=== PATIENT | female | born 1955 ===

== ENCOUNTER 2020-11-11 17:18 | Emergency (ER) | payer SELFPAY ==
[2020-11-11] MEDS ORDERED: predniSONE 20 MG TAB ONE (18:16)
[2020-11-11] MEDS ORDERED: Azithromycin 250 MG TAB ONE (18:21)
[2020-11-11 22:40] LABS: SARS-CoV-2 PCR by NAA DETECTED (NotDetected)
== END 2020-11-11 19:49 | disposition home or self-care (01) ==
LOC: ERS 17:18
DX: U07.1 COVID-19 (principal); J12.82 Pneumonia due to coronavirus disease 2019
CPT/HCPCS: 71045; 93005; J7512; J7620; U0003; U0005

== ENCOUNTER 2020-11-14 18:12 | Inpatient (IN) | payer SELFPAY ==
[~2020-11-14 18:12] MED LIST: Iopamidol-370 76% 500 ML 1 ML ONE
[2020-11-14 18:51] LABS: Hemoglobin 15.5 g/dL (12.0-16.0); Mean Corpuscular HGB CONC 31.9 g/dL (32.0-36.0); Mean Corpuscular Hemoglobin 28.5 pg (27.0-31.0); Mean Corpuscular Volume 89.4 fL (78.0-98.0); Mean Platelet Volume 9.6 fL (7.4-10.4); Platelet Count 285 thou/uL (130-400); RBC Distribution Width 12.5 % (11.5-14.5); Red Blood Cell (RBC) Count 5.45 mill/uL (4.20-5.40); White Blood Cell (WBC) Count 15.2 thou/uL (4.8-10.8)
[2020-11-14 19:07] LABS: Band 14 % (5-11); Lymphocytes 4 % (21-51); MDiff Complete? YES; Monocytes 3 % (0-10); Neutrophil 79 % (42-75); Platelet Morphology Comment Appears Adequate; RBC Morphology Normal
[2020-11-14] MEDS ORDERED: Dexamethasone 10 MG/ML VIAL ONE (19:10)
[2020-11-14] MEDS ORDERED: Enoxaparin Sodium 80 MG/0.8 ML SYRINGE ONE (19:10)
[2020-11-14] MEDS ORDERED: Aspirin Chewable 81 MG TAB ONE ×2 (19:10→19:29)
[2020-11-14] MEDS ORDERED: Azithromycin 500 MG VIAL ONE ×2 (19:10→19:29)
[2020-11-14 19:12] LABS: ALT (SGPT) 22 U/L (8-55); AST (SGOT) 31 U/L (5-34); Albumin 3.1 g/dL (3.4-4.8); Alkaline Phosphatase 98 U/L (40-110); Anion Gap 22 mmol/L (10-20); BUN (Urea Nitrogen) 52 mg/dL (9.8-20.1); Bilirubin, Total 0.7 mg/dL (0.2-1.2); CK (CPK) 41 U/L (29-168); Calc. Creatinine Clearance 0 mL/min (70-130); Calcium 8.8 mg/dL (7.8-10.44); Carbon Dioxide 17 mmol/L (23-31); Chloride 96 mmol/L (98-107); Globulin 4.3 g/dL (2.4-3.5); Lipase 17 U/L (8-78); Potassium 4.7 mmol/L (3.5-5.1); Protein, Total 7.4 g/dL (5.8-8.1); Sodium 130 mmol/L (136-145)
[2020-11-14 19:21] LABS: Glucose 591 mg/dL (80-115)
[2020-11-14] MEDS ORDERED: cefTRIAXone\\ROCEPHIN 2 GM VIAL ONE (19:29)
[2020-11-14] MEDS ORDERED: Dexamethasone 4 mg/ml Vial ONE (19:29)
[2020-11-14] MEDS ORDERED: INSULIN REGULAR IN 0.9 % NACL 100 UNIT/100 ML BAG ONE (19:29)
[2020-11-14] MEDS ORDERED: Enoxaparin Sodium 60 MG/0.6 ML SYRINGE ONE (20:11)
[2020-11-14 21:35] LABS: Actual Bicarbonate (HCO3a) 18.9 mEq/L (22-28); Analyzer IN Cardio ER; Base Excess (BEa) -4.3 mEq/L (-2.0 to +3.0); CO2 Tension 29.8 mmHg (35.0-45.0); Carboxyhemoglobin (COHb) 0.3 gm% (0.0-3.0); Hemoglobin (Hb) 14.2 g/dL (12.0-16.0); Potassium - ABG Lab 3.08 mmol/L (3.70-5.30); pH, Arterial 7.42 (7.35-7.45)
[2020-11-14 21:38] LABS: O2 Tension (PaO2), arterial 49.9 mmHg (> 80.0)
[2020-11-14 21:39] LABS: Puncture Site LRA
[2020-11-14] MEDS ORDERED: Ondansetron PF 4 MG/2 ML Vial IVP PRN (22:05)
[2020-11-14] MEDS ORDERED: Dextrose 5 %-0.45 % NaCl 1,000 ML IV PRN (22:08)
[2020-11-14] MEDS ORDERED: Electrolyte Replacement Protocol 1 EACH IVPB ONE (22:08)
[2020-11-14] MEDS ORDERED: Sodium Chloride 0.9% 1,000 ML IV PRN ×4 (22:08)
[2020-11-14] MEDS ORDERED: NS 0.9% w/ 20 MEQ KCL 1,000 ML IV PRN ×2 (22:08)
[2020-11-14] MEDS ORDERED: D5 1/2 NS w/20 mEq KCL 1,000 ML IV PRN (22:08)
[2020-11-14] MEDS ORDERED: Pharmacy to Dose BARICITINIB IVPB PRN (22:10)
[2020-11-14] MEDS ORDERED: HUMULIN R 100 UNITS in Sodium Chloride 0.9% 100 ML IVPB SCH (22:15)
[2020-11-14] MEDS ORDERED: Electrolyte Replacement Protocol FS PRN (22:15)
[2020-11-14 22:46] LABS: Anion Gap 16 mmol/L (10-20); BUN (Urea Nitrogen) 46 mg/dL (9.8-20.1); Calc. Creatinine Clearance 0 mL/min (70-130); Calcium 8.2 mg/dL (7.8-10.44); Carbon Dioxide 19 mmol/L (23-31); Chloride 103 mmol/L (98-107); Glucose 446 mg/dL (80-115); Potassium 4.3 mmol/L (3.5-5.1); Sodium 134 mmol/L (136-145)
[2020-11-15] MEDS ORDERED: NS 0.9% w/ 20 MEQ KCL 1,000 ML ONE (00:42)
[2020-11-15 03:05] LABS: Hemoglobin 14.9 g/dL (12.0-16.0); Mean Corpuscular HGB CONC 34.4 g/dL (32.0-36.0); Mean Corpuscular Hemoglobin 30.5 pg (27.0-31.0); Mean Corpuscular Volume 88.7 fL (78.0-98.0); Mean Platelet Volume 9.4 fL (7.4-10.4); Platelet Count 223 thou/uL (130-400); RBC Distribution Width 12.3 % (11.5-14.5); Red Blood Cell (RBC) Count 4.88 mill/uL (4.20-5.40); White Blood Cell (WBC) Count 19.1 thou/uL (4.8-10.8)
[2020-11-15 03:11] LABS: Chloride 111 mmol/L (98-107); Potassium 3.7 mmol/L (3.5-5.1); Sodium 136 mmol/L (136-145)
[2020-11-15 03:12] LABS: Calcium 8.3 mg/dL (7.8-10.44); Glucose 228 mg/dL (80-115)
[2020-11-15 03:14] LABS: Anion Gap 14 mmol/L (10-20); Carbon Dioxide 15 mmol/L (23-31)
[2020-11-15 03:16] LABS: BUN (Urea Nitrogen) 36 mg/dL (9.8-20.1); Calc. Creatinine Clearance 77 mL/min (70-130)
[2020-11-15 03:17] LABS: Band 8 % (5-11); Lymphocytes 6 % (21-51); Monocytes 4 % (0-10); Neutrophil 81 % (42-75); Platelet Morphology Comment Appears Adequate; RBC Morphology Normal; Reactive Lymphocytes 1 % (0-10)
[2020-11-15] MEDS ORDERED: Dextrose 5% in Water 1,000 ML IV PRN (03:22)
[2020-11-15] MEDS ORDERED: Lantus 1000 UNITS/10 ML VIAL SC SCH ×4 (03:30→21:00)
[2020-11-15 03:31] LABS: Hemoglobin A1c Greater than 14.0 % (4.0-6.0)
[2020-11-15 03:34] LABS: MDiff Complete? YES
[2020-11-15] MEDS ORDERED: HumaLOG 300 UNITS/3 ML VIAL ONE (05:42)
[2020-11-15] MEDS: HumaLOG 300 UNITS/3 ML VIAL SC PRN (05:43)
[2020-11-15 07:09] LABS: Anion Gap 15 mmol/L (10-20); BUN (Urea Nitrogen) 38 mg/dL (9.8-20.1); Calc. Creatinine Clearance 71 mL/min (70-130); Carbon Dioxide 15 mmol/L (23-31); Chloride 112 mmol/L (98-107); Glucose 285 mg/dL (80-115); Potassium 4.5 mmol/L (3.5-5.1); Sodium 137 mmol/L (136-145)
[2020-11-15] MEDS ORDERED: Dexamethasone 4 mg/ml Vial SLOW IVP SCH (09:00)
[2020-11-15] MEDS ORDERED: Sodium Bicarb 50 MEQ/50 ML Abboject 8.4% SYRINGE IVP SCH (09:30)
[2020-11-15] MEDS ORDERED: Famotidine 20 MG TAB ONE (09:35)
[2020-11-15] MEDS ORDERED: Enoxaparin Sodium 40 MG/0.4 ML SYRINGE ONE (09:35)
[2020-11-15] MEDS ORDERED: Ascorbic Acid 500 mg Chewable Tablet ONE (09:39)
[2020-11-15] MEDS ORDERED: Zinc Sulfate 220 MG CAP ONE (09:39)
[2020-11-15] MEDS: Ascorbic Acid 500 mg Chewable Tablet PO SCH (09:56)
[2020-11-15] MEDS: Enoxaparin Sodium 40 MG/0.4 ML SYRINGE SC SCH ×2 (09:56→20:23)
[2020-11-15] MEDS: Zinc Sulfate 220 MG CAP PO SCH (09:56)
[2020-11-15] MEDS: BARICITINIB 1 MG TAB PO SCH (09:56)
[2020-11-15] MEDS: Famotidine 20 MG TAB PO SCH ×2 (09:56→20:23)
[2020-11-15] MEDS ORDERED: Sodium Bicarb 50 MEQ/50 ML Abboject 8.4% SYRINGE ONE (12:05)
[2020-11-15] MEDS: cefTRIAXone\\ROCEPHIN 1 GM in Sodium Chloride 0.9% 100 ML IVPB SCH (20:23)
[2020-11-15] MEDS: Dexamethasone 4 mg/ml Vial SLOW IVP SCH (20:24)
[2020-11-15] MEDS: Azithromycin 500 MG in Sodium Chloride 0.9% 250 ML 250 ML IVPB SCH (22:16)
[2020-11-16] MEDS: HumaLOG 300 UNITS/3 ML VIAL SC PRN (06:28)
[2020-11-16 08:16] LABS: #Lymphocytes 0.8 thou/uL (1.20-3.40); #Monocytes 0.7 thou/uL (0.11-0.59); #Neutrophils 10.7 thou/uL (1.40-6.50); %Basophils 0.1 % (0.0-1.0); %Eosinophils 0.1 % (0.0-10.0); %Lymphocytes 6.4 % (21.0-51.0); %Neutrophils 87.4 % (42.0-75.0); Hemoglobin 15.6 g/dL (12.0-16.0); Mean Corpuscular HGB CONC 32.4 g/dL (32.0-36.0); Mean Corpuscular Hemoglobin 29.4 pg (27.0-31.0); Mean Corpuscular Volume 90.9 fL (78.0-98.0); Mean Platelet Volume 9.4 fL (7.4-10.4); Platelet Count 209 thou/uL (130-400); RBC Distribution Width 12.6 % (11.5-14.5); Red Blood Cell (RBC) Count 5.31 mill/uL (4.20-5.40); White Blood Cell (WBC) Count 12.2 thou/uL (4.8-10.8)
[2020-11-16 08:32] LABS: ALT (SGPT) 33 U/L (8-55); AST (SGOT) 55 U/L (5-34); Albumin 2.7 g/dL (3.4-4.8); Alkaline Phosphatase 144 U/L (40-110); Anion Gap 16 mmol/L (10-20); BUN (Urea Nitrogen) 25 mg/dL (9.8-20.1); Bilirubin, Total 0.5 mg/dL (0.2-1.2); CRP (Inflammatory) 4.64 mg/dL (= or < 0.5); Calc. Creatinine Clearance 80 mL/min (70-130); Calcium 8.1 mg/dL (7.8-10.44); Carbon Dioxide 18 mmol/L (23-31); Chloride 110 mmol/L (98-107); Globulin 4.1 g/dL (2.4-3.5); Glucose 269 mg/dL (80-115); Potassium 4.1 mmol/L (3.5-5.1); Protein, Total 6.8 g/dL (5.8-8.1); Sodium 140 mmol/L (136-145)
[2020-11-16] MEDS: Ascorbic Acid 500 mg Chewable Tablet PO SCH (08:38)
[2020-11-16] MEDS: Zinc Sulfate 220 MG CAP PO SCH (08:38)
[2020-11-16] MEDS: BARICITINIB 1 MG TAB PO SCH (08:38)
[2020-11-16] MEDS: Enoxaparin Sodium 40 MG/0.4 ML SYRINGE SC SCH ×2 (08:38→20:06)
[2020-11-16] MEDS: Famotidine 20 MG TAB PO SCH ×2 (08:38→20:06)
[2020-11-16] MEDS: Dexamethasone 4 mg/ml Vial SLOW IVP SCH ×2 (08:38→20:06)
[2020-11-16] MEDS ORDERED: Lantus 1000 UNITS/10 ML VIAL SC SCH ×2 (09:00→10:30)
[2020-11-16] MEDS: ALPRAZolam 0.5 MG TAB PO PRN (09:46)
[2020-11-16] MEDS: cefTRIAXone\\ROCEPHIN 1 GM in Sodium Chloride 0.9% 100 ML IVPB SCH (20:06)
[2020-11-16] MEDS: Lantus 1000 UNITS/10 ML VIAL SC SCH (20:07)
[2020-11-16] MEDS: Azithromycin 500 MG in Sodium Chloride 0.9% 250 ML 250 ML IVPB SCH (20:56)
[2020-11-17 04:25] LABS: #Lymphocytes 1.5 thou/uL (1.20-3.40); #Monocytes 0.4 thou/uL (0.11-0.59); #Neutrophils 12.2 thou/uL (1.40-6.50); %Basophils 0.1 % (0.0-1.0); %Lymphocytes 10.6 % (21.0-51.0); %Monocytes 2.5 % (0.0-10.0); %Neutrophils 86.8 % (42.0-75.0); Hemoglobin 14.7 g/dL (12.0-16.0); Mean Corpuscular HGB CONC 33.8 g/dL (32.0-36.0); Mean Corpuscular Hemoglobin 29.9 pg (27.0-31.0); Mean Corpuscular Volume 88.5 fL (78.0-98.0); Mean Platelet Volume 9.2 fL (7.4-10.4); Platelet Count 218 thou/uL (130-400); RBC Distribution Width 12.4 % (11.5-14.5); Red Blood Cell (RBC) Count 4.93 mill/uL (4.20-5.40); White Blood Cell (WBC) Count 14.1 thou/uL (4.8-10.8)
[2020-11-17 04:32] LABS: Lactic Acid 2.1 mmol/L (0.5-2.2)
[2020-11-17 04:40] LABS: ALT (SGPT) 30 U/L (8-55); AST (SGOT) 44 U/L (5-34); Albumin 2.9 g/dL (3.4-4.8); Alkaline Phosphatase 182 U/L (40-110); Anion Gap 14 mmol/L (10-20); BUN (Urea Nitrogen) 16 mg/dL (9.8-20.1); Bilirubin, Total 0.7 mg/dL (0.2-1.2); CRP (Inflammatory) 4.92 mg/dL (= or < 0.5); Calc. Creatinine Clearance 110 mL/min (70-130); Calcium 8.4 mg/dL (7.8-10.44); Carbon Dioxide 24 mmol/L (23-31); Chloride 108 mmol/L (98-107); Globulin 3.9 g/dL (2.4-3.5); Glucose 150 mg/dL (80-115); Magnesium 1.8 mg/dL (1.6-2.6); Potassium 3.7 mmol/L (3.5-5.1); Protein, Total 6.8 g/dL (5.8-8.1); Sodium 142 mmol/L (136-145)
[2020-11-17] MEDS: Ascorbic Acid 500 mg Chewable Tablet PO SCH (09:42)
[2020-11-17] MEDS: BARICITINIB 1 MG TAB PO SCH (09:42)
[2020-11-17] MEDS: Enoxaparin Sodium 40 MG/0.4 ML SYRINGE SC SCH ×2 (09:43→20:35)
[2020-11-17] MEDS: Dexamethasone 4 mg/ml Vial SLOW IVP SCH ×2 (09:43→20:35)
[2020-11-17] MEDS: Zinc Sulfate 220 MG CAP PO SCH (09:43)
[2020-11-17] MEDS: Famotidine 20 MG TAB PO SCH ×2 (09:43→20:35)
[2020-11-17] MEDS: Lantus 1000 UNITS/10 ML VIAL SC SCH ×2 (09:44→21:29)
[2020-11-17] MEDS: cefTRIAXone\\ROCEPHIN 1 GM in Sodium Chloride 0.9% 100 ML IVPB SCH (20:34)
[2020-11-17] MEDS: Azithromycin 500 MG in Sodium Chloride 0.9% 250 ML 250 ML IVPB SCH (21:21)
[2020-11-18 04:13] LABS: #Lymphocytes 0.7 thou/uL (1.20-3.40); #Monocytes 0.9 thou/uL (0.11-0.59); #Neutrophils 12.8 thou/uL (1.40-6.50); %Eosinophils 0.1 % (0.0-10.0); %Lymphocytes 5.1 % (21.0-51.0); %Monocytes 6.3 % (0.0-10.0); %Neutrophils 88.5 % (42.0-75.0); Hemoglobin 14.9 g/dL (12.0-16.0); Mean Corpuscular HGB CONC 33.3 g/dL (32.0-36.0); Mean Corpuscular Hemoglobin 29.6 pg (27.0-31.0); Mean Corpuscular Volume 88.9 fL (78.0-98.0); Mean Platelet Volume 8.9 fL (7.4-10.4); Platelet Count 171 thou/uL (130-400); RBC Distribution Width 12.2 % (11.5-14.5); Red Blood Cell (RBC) Count 5.02 mill/uL (4.20-5.40); White Blood Cell (WBC) Count 14.5 thou/uL (4.8-10.8)
[2020-11-18 04:31] LABS: ALT (SGPT) 24 U/L (8-55); AST (SGOT) 37 U/L (5-34); Albumin 2.8 g/dL (3.4-4.8); Alkaline Phosphatase 233 U/L (40-110); Anion Gap 13 mmol/L (10-20); BUN (Urea Nitrogen) 15 mg/dL (9.8-20.1); Bilirubin, Total 0.8 mg/dL (0.2-1.2); Calc. Creatinine Clearance 101 mL/min (70-130); Calcium 8.3 mg/dL (7.8-10.44); Carbon Dioxide 26 mmol/L (23-31); Chloride 105 mmol/L (98-107); Glucose 101 mg/dL (80-115); Potassium 3.5 mmol/L (3.5-5.1); Protein, Total 6.8 g/dL (5.8-8.1); Sodium 140 mmol/L (136-145)
[2020-11-18] MEDS: Enoxaparin Sodium 40 MG/0.4 ML SYRINGE SC SCH ×2 (11:32→20:54)
[2020-11-18] MEDS: Dexamethasone 4 mg/ml Vial SLOW IVP SCH ×2 (11:32→20:54)
[2020-11-18] MEDS: BARICITINIB 1 MG TAB PO SCH (11:33)
[2020-11-18] MEDS: Ascorbic Acid 500 mg Chewable Tablet PO SCH (11:33)
[2020-11-18] MEDS: Famotidine 20 MG TAB PO SCH ×2 (11:34→20:54)
[2020-11-18] MEDS: Lantus 1000 UNITS/10 ML VIAL SC SCH ×2 (11:35→21:44)
[2020-11-18] MEDS: Zinc Sulfate 220 MG CAP PO SCH (11:35)
[2020-11-18] MEDS: HumaLOG 300 UNITS/3 ML VIAL SC PRN (18:28)
[2020-11-18] MEDS: cefTRIAXone\\ROCEPHIN 1 GM in Sodium Chloride 0.9% 100 ML IVPB SCH (20:52)
[2020-11-18] MEDS: Azithromycin 500 MG in Sodium Chloride 0.9% 250 ML 250 ML IVPB SCH (21:43)
[2020-11-19 04:16] LABS: Anion Gap 19 mmol/L (10-20); BUN (Urea Nitrogen) 19 mg/dL (9.8-20.1); Calc. Creatinine Clearance 84 mL/min (70-130); Calcium 8.4 mg/dL (7.8-10.44); Carbon Dioxide 21 mmol/L (23-31); Chloride 104 mmol/L (98-107); Glucose 168 mg/dL (80-115); Potassium 4.7 mmol/L (3.5-5.1); Sodium 139 mmol/L (136-145)
[2020-11-19] MEDS: Ascorbic Acid 500 mg Chewable Tablet PO SCH (08:06)
[2020-11-19] MEDS: Famotidine 20 MG TAB PO SCH ×2 (08:07→21:25)
[2020-11-19] MEDS: Dexamethasone 4 mg/ml Vial SLOW IVP SCH ×2 (08:07→21:25)
[2020-11-19] MEDS: BARICITINIB 1 MG TAB PO SCH (08:07)
[2020-11-19] MEDS: Enoxaparin Sodium 40 MG/0.4 ML SYRINGE SC SCH ×2 (08:07→21:25)
[2020-11-19] MEDS: Lantus 1000 UNITS/10 ML VIAL SC SCH ×2 (08:08→21:26)
[2020-11-19] MEDS: Zinc Sulfate 220 MG CAP PO SCH (08:08)
[2020-11-19] MEDS: HumaLOG 300 UNITS/3 ML VIAL SC PRN (16:59)
[2020-11-19] MEDS: cefTRIAXone\\ROCEPHIN 1 GM in Sodium Chloride 0.9% 100 ML IVPB SCH (21:24)
[2020-11-19] MEDS: Azithromycin 500 MG in Sodium Chloride 0.9% 250 ML 250 ML IVPB SCH (22:13)
[2020-11-20 04:25] LABS: Anion Gap 11 mmol/L (10-20); BUN (Urea Nitrogen) 20 mg/dL (9.8-20.1); Calc. Creatinine Clearance 103 mL/min (70-130); Carbon Dioxide 27 mmol/L (23-31); Chloride 105 mmol/L (98-107); Glucose 143 mg/dL (80-115); Potassium 3.5 mmol/L (3.5-5.1); Sodium 139 mmol/L (136-145)
[2020-11-20] MEDS: BARICITINIB 1 MG TAB PO SCH (08:57)
[2020-11-20] MEDS: Ascorbic Acid 500 mg Chewable Tablet PO SCH (08:57)
[2020-11-20] MEDS: Enoxaparin Sodium 40 MG/0.4 ML SYRINGE SC SCH ×2 (08:58→20:16)
[2020-11-20] MEDS: Zinc Sulfate 220 MG CAP PO SCH (08:58)
[2020-11-20] MEDS: Dexamethasone 4 mg/ml Vial SLOW IVP SCH ×2 (08:58→20:16)
[2020-11-20] MEDS: Famotidine 20 MG TAB PO SCH ×2 (08:58→20:15)
[2020-11-20] MEDS: Lantus 1000 UNITS/10 ML VIAL SC SCH ×2 (08:59→20:51)
[2020-11-20 09:46] LABS: #Lymphocytes 0.6 thou/uL (1.20-3.40); #Neutrophils 15.6 thou/uL (1.40-6.50); %Basophils 0.1 % (0.0-1.0); %Eosinophils 0.1 % (0.0-10.0); %Lymphocytes 3.6 % (21.0-51.0); %Monocytes 5.9 % (0.0-10.0); %Neutrophils 90.3 % (42.0-75.0); Hemoglobin 14.8 g/dL (12.0-16.0); Mean Corpuscular HGB CONC 32.7 g/dL (32.0-36.0); Mean Corpuscular Volume 88.6 fL (78.0-98.0); Mean Platelet Volume 8.8 fL (7.4-10.4); Platelet Count 158 thou/uL (130-400); RBC Distribution Width 12.2 % (11.5-14.5); White Blood Cell (WBC) Count 17.2 thou/uL (4.8-10.8)
[2020-11-20] MEDS: HumaLOG 300 UNITS/3 ML VIAL SC PRN ×2 (17:11→20:55)
[2020-11-20] MEDS: ALPRAZolam 0.5 MG TAB PO PRN (19:01)
[2020-11-20] MEDS: cefTRIAXone\\ROCEPHIN 1 GM in Sodium Chloride 0.9% 100 ML IVPB SCH (20:15)
[2020-11-20] MEDS: Senokot S 8.6-50 MG TAB PO SCH (20:17)
[2020-11-20] MEDS: Acetaminophen 325 MG TAB PO PRN (20:19)
[2020-11-20] MEDS: Azithromycin 500 MG in Sodium Chloride 0.9% 250 ML 250 ML IVPB SCH (22:04)
[2020-11-21 05:06] LABS: Anion Gap 16 mmol/L (10-20); BUN (Urea Nitrogen) 18 mg/dL (9.8-20.1); Calc. Creatinine Clearance 90 mL/min (70-130); Calcium 8.2 mg/dL (7.8-10.44); Carbon Dioxide 23 mmol/L (23-31); Chloride 103 mmol/L (98-107); Glucose 137 mg/dL (80-115); Potassium 3.6 mmol/L (3.5-5.1); Sodium 138 mmol/L (136-145)
[2020-11-21] MEDS: Acetaminophen 325 MG TAB PO PRN (06:01)
[2020-11-21] MEDS: HumaLOG 300 UNITS/3 ML VIAL SC PRN ×2 (06:12→17:23)
[2020-11-21] MEDS: Enoxaparin Sodium 40 MG/0.4 ML SYRINGE SC SCH ×2 (08:28→20:48)
[2020-11-21] MEDS: Ascorbic Acid 500 mg Chewable Tablet PO SCH (08:28)
[2020-11-21] MEDS: Dexamethasone 4 mg/ml Vial SLOW IVP SCH ×2 (08:28→20:48)
[2020-11-21] MEDS: BARICITINIB 1 MG TAB PO SCH (08:29)
[2020-11-21] MEDS: Zinc Sulfate 220 MG CAP PO SCH (08:29)
[2020-11-21] MEDS: Famotidine 20 MG TAB PO SCH ×2 (08:29→20:47)
[2020-11-21] MEDS: Senokot S 8.6-50 MG TAB PO SCH ×2 (08:29→20:47)
[2020-11-21] MEDS: Lantus 1000 UNITS/10 ML VIAL SC SCH ×2 (08:30→20:50)
[2020-11-21] MEDS: ALPRAZolam 0.5 MG TAB PO PRN (09:05)
[2020-11-22 04:06] LABS: Anion Gap 13 mmol/L (10-20); BUN (Urea Nitrogen) 15 mg/dL (9.8-20.1); Calc. Creatinine Clearance 102 mL/min (70-130); Calcium 8.1 mg/dL (7.8-10.44); Carbon Dioxide 26 mmol/L (23-31); Chloride 107 mmol/L (98-107); Glucose 131 mg/dL (80-115); Potassium 3.8 mmol/L (3.5-5.1); Sodium 142 mmol/L (136-145)
[2020-11-22] MEDS: Enoxaparin Sodium 40 MG/0.4 ML SYRINGE SC SCH ×2 (09:40→20:34)
[2020-11-22] MEDS: Dexamethasone 4 mg/ml Vial SLOW IVP SCH ×2 (09:41→20:38)
[2020-11-22] MEDS: BARICITINIB 1 MG TAB PO SCH (09:42)
[2020-11-22] MEDS: Famotidine 20 MG TAB PO SCH ×2 (09:42→20:35)
[2020-11-22] MEDS: Zinc Sulfate 220 MG CAP PO SCH (09:42)
[2020-11-22] MEDS: Senokot S 8.6-50 MG TAB PO SCH ×2 (09:43→20:35)
[2020-11-22] MEDS: Lantus 1000 UNITS/10 ML VIAL SC SCH ×2 (09:43→20:42)
[2020-11-22] MEDS: Ascorbic Acid 500 mg Chewable Tablet PO SCH (09:46)
[2020-11-22 10:11] LABS: Hemoglobin 14.8 g/dL (12.0-16.0); Mean Corpuscular HGB CONC 33.4 g/dL (32.0-36.0); Mean Corpuscular Hemoglobin 29.6 pg (27.0-31.0); Mean Corpuscular Volume 88.5 fL (78.0-98.0); Mean Platelet Volume 9.6 fL (7.4-10.4); Platelet Count 146 thou/uL (130-400); RBC Distribution Width 12.2 % (11.5-14.5); White Blood Cell (WBC) Count 23.7 thou/uL (4.8-10.8)
[2020-11-22 10:41] LABS: Band 12 % (5-11); Lymphocytes 4 % (21-51); MDiff Complete? YES; Monocytes 5 % (0-10); Neutrophil 79 % (42-75); Platelet Morphology Comment Appears Adequate; RBC Morphology Normal
[2020-11-22] MEDS: HumaLOG 300 UNITS/3 ML VIAL SC PRN (20:43)
[2020-11-23 04:20] LABS: Hemoglobin 14.9 g/dL (12.0-16.0); Mean Corpuscular HGB CONC 32.7 g/dL (32.0-36.0); Mean Corpuscular Volume 88.7 fL (78.0-98.0); Mean Platelet Volume 9.6 fL (7.4-10.4); Platelet Count 145 thou/uL (130-400); RBC Distribution Width 12.2 % (11.5-14.5); Red Blood Cell (RBC) Count 5.15 mill/uL (4.20-5.40); White Blood Cell (WBC) Count 24.9 thou/uL (4.8-10.8)
[2020-11-23 04:31] LABS: Anion Gap 14 mmol/L (10-20); BUN (Urea Nitrogen) 19 mg/dL (9.8-20.1); Calc. Creatinine Clearance 94 mL/min (70-130); Calcium 8.2 mg/dL (7.8-10.44); Carbon Dioxide 26 mmol/L (23-31); Chloride 103 mmol/L (98-107); Glucose 145 mg/dL (80-115); Sodium 139 mmol/L (136-145)
[2020-11-23 04:37] LABS: ALT (SGPT) 23 U/L (8-55); AST (SGOT) 30 U/L (5-34); Albumin 2.8 g/dL (3.4-4.8); Alkaline Phosphatase 430 U/L (40-110); Bilirubin, Direct 0.4 mg/dL (0.1-0.3); Bilirubin, Total 0.9 mg/dL (0.2-1.2); Protein, Total 6.8 g/dL (5.8-8.1)
[2020-11-23 04:47] LABS: Band 12 % (5-11); Lymphocytes 3 % (21-51); MDiff Complete? YES; Neutrophil 85 % (42-75); Toxic Granulation SLIGHT
[2020-11-23] MEDS: Ascorbic Acid 500 mg Chewable Tablet PO SCH (10:42)
[2020-11-23] MEDS: BARICITINIB 1 MG TAB PO SCH (10:43)
[2020-11-23] MEDS: Dexamethasone 4 mg/ml Vial SLOW IVP SCH (10:43)
[2020-11-23] MEDS: Famotidine 20 MG TAB PO SCH ×2 (10:43→20:28)
[2020-11-23] MEDS: Zinc Sulfate 220 MG CAP PO SCH (10:43)
[2020-11-23] MEDS: Enoxaparin Sodium 40 MG/0.4 ML SYRINGE SC SCH ×2 (10:44→20:27)
[2020-11-23] MEDS: Lantus 1000 UNITS/10 ML VIAL SC SCH ×2 (10:44→20:28)
[2020-11-23] MEDS: Senokot S 8.6-50 MG TAB PO SCH ×2 (10:45→20:28)
[2020-11-23] MEDS: Morphine 4 MG/ML VIAL SLOW IVP PRN ×2 (14:29→19:49)
[2020-11-23 19:53] LABS: Bilirubin Negative (Negative); Blood, Urine Negative (Negative); Clarity Clear (Clear); Glucose, Urine (Dipstick) 200 mg/dL (Negative); Ketone, Urine 10 mg/dL (Negative); Leukocyte Negative Leu/uL (Negative); Nitrite Negative (Negative); Protein, Urine (Dipstick) 20 mg/dL (Neg-Trace); RBC/HPF 0-3 HPF (0-3); Specific Gravity, Urine 1.025 (1.002-1.036); Squamous Epithelial 0-3 HPF (0-3); WBC/HPF 0-3 HPF (0-3); pH, Urine 6.5 (5.0-9.0)
[2020-11-23 20:07] LABS: Bacteria/HPF Rare-Few HPF (None Seen)
[2020-11-23 20:09] LABS: Urine Culture Reflex No No
[2020-11-24 04:05] LABS: Mean Corpuscular HGB CONC 31.8 g/dL (32.0-36.0); Mean Corpuscular Hemoglobin 28.7 pg (27.0-31.0); Mean Corpuscular Volume 90.2 fL (78.0-98.0); Mean Platelet Volume 9.3 fL (7.4-10.4); Platelet Count 208 thou/uL (130-400); RBC Distribution Width 12.4 % (11.5-14.5); Red Blood Cell (RBC) Count 5.56 mill/uL (4.20-5.40); White Blood Cell (WBC) Count 46.4 thou/uL (4.8-10.8)
[2020-11-24 04:17] LABS: Anion Gap 21 mmol/L (10-20); BUN (Urea Nitrogen) 20 mg/dL (9.8-20.1); Calc. Creatinine Clearance 114 mL/min (70-130); Calcium 8.7 mg/dL (7.8-10.44); Carbon Dioxide 23 mmol/L (23-31); Chloride 104 mmol/L (98-107); Potassium 3.6 mmol/L (3.5-5.1); Sodium 144 mmol/L (136-145)
[2020-11-24 04:21] LABS: Glucose 40 mg/dL (80-115)
[2020-11-24] MEDS: Dextrose 50% Abboject 50 ML SYRINGE SLOW IVP PRN (04:25)
[2020-11-24] MEDS: Morphine 4 MG/ML VIAL SLOW IVP PRN (04:40)
[2020-11-24 04:42] LABS: Band 9 % (5-11); Lymphocytes 3 % (21-51); MDiff Complete? YES; Metamyelocyte 1 % (0-0); Monocytes 3 % (0-10); Neutrophil 84 % (42-75); Platelet Morphology Comment Appears Adequate; RBC Morphology Normal
[2020-11-24 05:20] LABS: Actual Bicarbonate (HCO3a) 28.9 mEq/L (22-28); Base Excess (BEa) 3.3 mEq/L (-2.0 to +3.0); CO2 Tension 47.3 mmHg (35.0-45.0); Calcium, Ionized (arterial) 1.14 mmol/L (1.12-1.30); Carboxyhemoglobin (COHb) 1.6 gm% (0.0-3.0); Hemoglobin (Hb) 16.1 g/dL (12.0-16.0); Potassium - ABG Lab 3.12 mmol/L (3.70-5.30)
[2020-11-24 05:29] LABS: ALV-art Gradient 609.075 mmHg (0-20); O2 Tension (PaO2), arterial 44.8 mmHg (> 80.0); Puncture Site RRA
[2020-11-24] MEDS ORDERED: Propofol 1,000 MG/100 ML VIAL IV ONE (08:48)
[2020-11-24] MEDS ORDERED: Lorazepam 2 MG/ML VIAL ONE (08:52)
[2020-11-24] MEDS ORDERED: Fentanyl CADD 100 ML ONE (09:07)
[2020-11-24] MEDS: Fentanyl CADD 100 ML IV SCH (09:11)
[2020-11-24] MEDS ORDERED: Lorazepam 2 MG/ML VIAL SLOW IVP SCH (09:15)
[2020-11-24] MEDS ORDERED: Propofol BOLUS 1,000 MG/100 ML VIAL IV PRN (09:15)
[2020-11-24] MEDS ORDERED: Fentanyl BOLUS 250 ML IVPB PRN (09:15)
[2020-11-24] MEDS ORDERED: Morphine 2 MG/ML VIAL SLOW IVP PRN (09:15)
[2020-11-24] MEDS ORDERED: DISCONTINUE PREVIOUS NARCOTIC PAIN MEDICATIONS AND BENZODIAZEPINES FS SCH (09:15)
[2020-11-24 09:39] LABS: Actual Bicarbonate (HCO3a) 24.6 mEq/L (22-28); Calcium, Ionized (arterial) 1.11 mmol/L (1.12-1.30); Carboxyhemoglobin (COHb) 1.5 gm% (0.0-3.0); Hemoglobin (Hb) 15.7 g/dL (12.0-16.0); Potassium - ABG Lab 3.55 mmol/L (3.70-5.30); pH, Arterial 7.37 (7.35-7.45)
[2020-11-24] MEDS ORDERED: Norepinephrine 8 MG/0.9% NS 250 ML ONE (09:48)
[2020-11-24 09:55] LABS: O2 Tension (PaO2), arterial 46.8 mmHg (> 80.0); Puncture Site LRA
[2020-11-24] MEDS ORDERED: Succinylcholine 200 MG/10 ml SYRINGE FS ONE (10:00)
[2020-11-24] MEDS ORDERED: PROPOFOL 200 MG/20 ML VIAL ONE (10:00)
[2020-11-24] MEDS ORDERED: Succinylcholine 200 MG/10 ml SYRINGE FS SCH (10:30)
[2020-11-24] MEDS ORDERED: PROPOFOL 200 MG/20 ML VIAL IV SCH (10:30)
[2020-11-24] MEDS ORDERED: Lactated Ringer's 500 ML IV SCH (11:00)
[2020-11-24] MEDS: Famotidine 20 MG TAB PO SCH ×2 (11:25→21:16)
[2020-11-24] MEDS: Dexamethasone 4 mg/ml Vial SLOW IVP SCH (11:25)
[2020-11-24] MEDS: BARICITINIB 1 MG TAB PO SCH (11:25)
[2020-11-24] MEDS: Enoxaparin Sodium 40 MG/0.4 ML SYRINGE SC SCH ×2 (11:26→21:16)
[2020-11-24] MEDS: Zinc Sulfate 220 MG CAP PO SCH (11:26)
[2020-11-24] MEDS: Ascorbic Acid 500 mg Chewable Tablet PO SCH (11:26)
[2020-11-24] MEDS: Senokot S 8.6-50 MG TAB PO SCH ×2 (11:26→21:16)
[2020-11-24] MEDS: Lantus 1000 UNITS/10 ML VIAL SC SCH ×2 (11:27→21:19)
[2020-11-24] MEDS: Dextrose 5 %-0.45 % NaCl 1,000 ML IV SCH ×2 (11:28→21:16)
[2020-11-24] MEDS: HumaLOG 300 UNITS/3 ML VIAL SC PRN ×2 (18:14→21:19)
[2020-11-25] MEDS: Propofol 1,000 MG/100 ML VIAL IV PRN ×2 (04:23→15:08)
[2020-11-25 05:24] LABS: Band 5 % (5-11); Hemoglobin 13.1 g/dL (12.0-16.0); Lymphocytes 3 % (21-51); MDiff Complete? YES; Mean Corpuscular HGB CONC 31.6 g/dL (32.0-36.0); Mean Corpuscular Hemoglobin 28.9 pg (27.0-31.0); Mean Corpuscular Volume 91.4 fL (78.0-98.0); Mean Platelet Volume 9.3 fL (7.4-10.4); Monocytes 2 % (0-10); Neutrophil 90 % (42-75); Platelet Count 153 thou/uL (130-400); Platelet Morphology Comment Appears Adequate; RBC Distribution Width 12.5 % (11.5-14.5); Red Blood Cell (RBC) Count 4.53 mill/uL (4.20-5.40)
[2020-11-25 05:33] LABS: ALT (SGPT) 16 U/L (8-55); AST (SGOT) 28 U/L (5-34); Albumin 2.5 g/dL (3.4-4.8); Alkaline Phosphatase 254 U/L (40-110); Anion Gap 14 mmol/L (10-20); BUN (Urea Nitrogen) 32 mg/dL (9.8-20.1); Bilirubin, Total 0.9 mg/dL (0.2-1.2); Calc. Creatinine Clearance 84 mL/min (70-130); Carbon Dioxide 27 mmol/L (23-31); Chloride 101 mmol/L (98-107); Globulin 3.3 g/dL (2.4-3.5); Glucose 220 mg/dL (80-115); Potassium 3.4 mmol/L (3.5-5.1); Protein, Total 5.8 g/dL (5.8-8.1); Sodium 139 mmol/L (136-145)
[2020-11-25] MEDS: Dextrose 5 %-0.45 % NaCl 1,000 ML IV SCH ×2 (06:17→16:20)
[2020-11-25] MEDS ORDERED: Fentanyl CADD 100 ML ONE ×2 (06:20→23:57)
[2020-11-25] MEDS: Fentanyl CADD 100 ML IV SCH (06:21)
[2020-11-25] MEDS: HumaLOG 300 UNITS/3 ML VIAL SC PRN ×2 (06:35→18:31)
[2020-11-25] MEDS: BARICITINIB 1 MG TAB PO SCH (10:00)
[2020-11-25] MEDS: Enoxaparin Sodium 40 MG/0.4 ML SYRINGE SC SCH ×2 (10:02→21:05)
[2020-11-25] MEDS: Famotidine 20 MG TAB PO SCH ×2 (10:02→21:05)
[2020-11-25] MEDS: Ascorbic Acid 500 mg Chewable Tablet PO SCH (10:02)
[2020-11-25] MEDS: Senokot S 8.6-50 MG TAB PO SCH ×2 (10:02→21:05)
[2020-11-25] MEDS: Zinc Sulfate 220 MG CAP PO SCH (10:02)
[2020-11-25] MEDS: Lantus 1000 UNITS/10 ML VIAL SC SCH ×2 (10:03→21:06)
[2020-11-25] MEDS: Dexamethasone 4 mg/ml Vial SLOW IVP SCH (10:03)
[2020-11-25] MEDS: Norepinephrine 8 MG/0.9% NS 250 ML IVPB SCH (23:45)
[2020-11-26] MEDS: Propofol 1,000 MG/100 ML VIAL IV PRN ×3 (00:02→17:27)
[2020-11-26] MEDS: Fentanyl CADD 100 ML IV SCH ×2 (00:03→16:24)
[2020-11-26 04:40] LABS: #Eosinphils 0.1 thou/uL (0.0-0.7); #Lymphocytes 1.1 thou/uL (1.20-3.40); #Monocytes 1.4 thou/uL (0.11-0.59); #Neutrophils 22.9 thou/uL (1.40-6.50); %Basophils 0.1 % (0.0-1.0); %Eosinophils 0.2 % (0.0-10.0); %Lymphocytes 4.2 % (21.0-51.0); %Monocytes 5.4 % (0.0-10.0); %Neutrophils 90.1 % (42.0-75.0); Hemoglobin 12.5 g/dL (12.0-16.0); Mean Corpuscular HGB CONC 31.2 g/dL (32.0-36.0); Mean Corpuscular Hemoglobin 28.7 pg (27.0-31.0); Mean Corpuscular Volume 91.8 fL (78.0-98.0); Mean Platelet Volume 9.6 fL (7.4-10.4); Platelet Count 167 thou/uL (130-400); RBC Distribution Width 12.4 % (11.5-14.5); Red Blood Cell (RBC) Count 4.38 mill/uL (4.20-5.40); White Blood Cell (WBC) Count 25.4 thou/uL (4.8-10.8)
[2020-11-26 05:11] LABS: ALT (SGPT) 15 U/L (8-55); AST (SGOT) 22 U/L (5-34); Albumin 2.5 g/dL (3.4-4.8); Alkaline Phosphatase 183 U/L (40-110); Anion Gap 13 mmol/L (10-20); BUN (Urea Nitrogen) 25 mg/dL (9.8-20.1); Bilirubin, Direct 0.2 mg/dL (0.1-0.3); Bilirubin, Total 0.4 mg/dL (0.2-1.2); Calc. Creatinine Clearance 100 mL/min (70-130); Calcium 8.6 mg/dL (7.8-10.44); Carbon Dioxide 31 mmol/L (23-31); Chloride 101 mmol/L (98-107); Globulin 3.3 g/dL (2.4-3.5); Glucose 127 mg/dL (80-115); Protein, Total 5.8 g/dL (5.8-8.1); Sodium 141 mmol/L (136-145)
[2020-11-26] MEDS: BARICITINIB 1 MG TAB PO SCH (08:52)
[2020-11-26] MEDS: Zinc Sulfate 220 MG CAP PO SCH (08:52)
[2020-11-26] MEDS: Dexamethasone 4 mg/ml Vial SLOW IVP SCH (08:52)
[2020-11-26] MEDS: Enoxaparin Sodium 40 MG/0.4 ML SYRINGE SC SCH ×2 (08:53→21:00)
[2020-11-26] MEDS: Senokot S 8.6-50 MG TAB PO SCH ×2 (08:53→20:59)
[2020-11-26] MEDS: Ascorbic Acid 500 mg Chewable Tablet PO SCH (08:53)
[2020-11-26] MEDS: Famotidine 20 MG TAB PO SCH ×2 (08:53→20:59)
[2020-11-26] MEDS: Lantus 1000 UNITS/10 ML VIAL SC SCH ×2 (08:54→21:01)
[2020-11-26] MEDS: Lactated Ringer's 500 ML IV SCH ×2 (13:20→23:17)
[2020-11-26] MEDS: Lorazepam 2 MG/ML VIAL SLOW IVP PRN (14:19)
[2020-11-26] MEDS ORDERED: Fentanyl CADD 100 ML ONE (16:19)
[2020-11-26] MEDS: HumaLOG 300 UNITS/3 ML VIAL SC PRN (17:33)
[2020-11-27] MEDS: Propofol 1,000 MG/100 ML VIAL IV PRN ×4 (03:52→20:20)
[2020-11-27 04:28] LABS: Anion Gap 14 mmol/L (10-20); BUN (Urea Nitrogen) 22 mg/dL (9.8-20.1); Calc. Creatinine Clearance 117 mL/min (70-130); Calcium 8.4 mg/dL (7.8-10.44); Carbon Dioxide 32 mmol/L (23-31); Chloride 101 mmol/L (98-107); Glucose 113 mg/dL (80-115); Potassium 4.5 mmol/L (3.5-5.1); Sodium 142 mmol/L (136-145)
[2020-11-27] MEDS: Ascorbic Acid 500 mg Chewable Tablet PO SCH (08:09)
[2020-11-27] MEDS: Zinc Sulfate 220 MG CAP PO SCH (08:09)
[2020-11-27] MEDS: Senokot S 8.6-50 MG TAB PO SCH ×2 (08:10→20:20)
[2020-11-27] MEDS: Famotidine 20 MG TAB PO SCH ×2 (08:10→20:20)
[2020-11-27] MEDS: Enoxaparin Sodium 40 MG/0.4 ML SYRINGE SC SCH ×2 (08:11→20:20)
[2020-11-27] MEDS: Dexamethasone 4 mg/ml Vial SLOW IVP SCH (08:11)
[2020-11-27] MEDS: BARICITINIB 1 MG TAB PO SCH (08:11)
[2020-11-27] MEDS: Morphine 4 MG/ML VIAL SLOW IVP PRN ×2 (08:12→22:01)
[2020-11-27] MEDS: Lorazepam 2 MG/ML VIAL SLOW IVP PRN ×4 (08:12→20:20)
[2020-11-27 08:41] LABS: Actual Bicarbonate (HCO3a) 32.9 mEq/L (22-28); Base Excess (BEa) 7.1 mEq/L (-2.0 to +3.0); CO2 Tension 51.7 mmHg (35.0-45.0); Calcium, Ionized (arterial) 1.17 mmol/L (1.12-1.30); Hemoglobin (Hb) 12.7 g/dL (12.0-16.0); O2 Tension (PaO2), arterial 58.1 mmHg (> 80.0); Puncture Site RRA; pH, Arterial 7.42 (7.35-7.45)
[2020-11-27 08:42] LABS: ALV-art Gradient 590.275 mmHg (0-20)
[2020-11-27] MEDS ORDERED: Fentanyl CADD 100 ML ONE (09:31)
[2020-11-27] MEDS: Lantus 1000 UNITS/10 ML VIAL SC SCH ×2 (09:37→20:57)
[2020-11-27] MEDS: Polyethylene Glycol 3350 17 GM Packet PER TUBE SCH (09:42)
[2020-11-27] MEDS: Dextrose 50% Abboject 50 ML SYRINGE SLOW IVP PRN (09:42)
[2020-11-27] MEDS: Fentanyl CADD 100 ML IV SCH (09:43)
[2020-11-27] MEDS: Norepinephrine 8 MG/0.9% NS 250 ML IVPB SCH (14:30)
[2020-11-27] MEDS: HumaLOG 300 UNITS/3 ML VIAL SC PRN (17:46)
[2020-11-28] MEDS ORDERED: Fentanyl CADD 100 ML ONE ×2 (02:35→15:43)
[2020-11-28] MEDS: Fentanyl CADD 100 ML IV SCH ×2 (02:38→15:51)
[2020-11-28 04:33] LABS: Anion Gap 12 mmol/L (10-20); BUN (Urea Nitrogen) 21 mg/dL (9.8-20.1); Calc. Creatinine Clearance 117 mL/min (70-130); Calcium 7.9 mg/dL (7.8-10.44); Carbon Dioxide 34 mmol/L (23-31); Chloride 98 mmol/L (98-107); Glucose 88 mg/dL (80-115); Potassium 3.8 mmol/L (3.5-5.1); Sodium 140 mmol/L (136-145)
[2020-11-28] MEDS: Acetaminophen 325 MG TAB PO PRN (05:43)
[2020-11-28] MEDS: Lorazepam 2 MG/ML VIAL SLOW IVP PRN ×4 (06:29→23:28)
[2020-11-28 07:48] LABS: Actual Bicarbonate (HCO3a) 35.5 mEq/L (22-28); Base Excess (BEa) 10.1 mEq/L (-2.0 to +3.0); CO2 Tension 50.5 mmHg (35.0-45.0); Calcium, Ionized (arterial) 1.14 mmol/L (1.12-1.30); Carboxyhemoglobin (COHb) 1.6 gm% (0.0-3.0); pH, Arterial 7.47 (7.35-7.45)
[2020-11-28 08:12] LABS: ALV-art Gradient 388.975 mmHg (0-20); Puncture Site LRA
[2020-11-28] MEDS: Propofol 1,000 MG/100 ML VIAL IV PRN ×3 (08:18→19:36)
[2020-11-28] MEDS: Polyethylene Glycol 3350 17 GM Packet PER TUBE SCH (08:19)
[2020-11-28] MEDS: Dexamethasone 4 mg/ml Vial SLOW IVP SCH (08:19)
[2020-11-28] MEDS: Senokot S 8.6-50 MG TAB PO SCH ×2 (08:19→19:31)
[2020-11-28] MEDS: Famotidine 20 MG TAB PO SCH ×2 (08:19→19:31)
[2020-11-28] MEDS: Zinc Sulfate 220 MG CAP PO SCH (08:19)
[2020-11-28] MEDS: Enoxaparin Sodium 40 MG/0.4 ML SYRINGE SC SCH ×2 (08:19→19:31)
[2020-11-28] MEDS: BARICITINIB 1 MG TAB PO SCH (08:19)
[2020-11-28] MEDS: Ascorbic Acid 500 mg Chewable Tablet PO SCH (08:19)
[2020-11-28] MEDS: Lantus 1000 UNITS/10 ML VIAL SC SCH ×2 (08:55→21:00)
[2020-11-28] MEDS: Morphine 4 MG/ML VIAL SLOW IVP PRN ×2 (19:31→23:28)
[2020-11-28] MEDS: Vecuronium 10 MG VIAL IVP PRN ×4 (21:25→23:50)
[2020-11-29] MEDS: Morphine 4 MG/ML VIAL SLOW IVP PRN ×4 (02:20→21:49)
[2020-11-29] MEDS: Lorazepam 2 MG/ML VIAL SLOW IVP PRN ×6 (02:21→21:14)
[2020-11-29] MEDS: Propofol 1,000 MG/100 ML VIAL IV PRN ×3 (02:21→19:28)
[2020-11-29] MEDS: Vecuronium 10 MG VIAL IVP PRN ×6 (02:21→21:49)
[2020-11-29 04:06] LABS: #Eosinphils 0.2 thou/uL (0.0-0.7); #Lymphocytes 1.8 thou/uL (1.20-3.40); #Monocytes 1.2 thou/uL (0.11-0.59); #Neutrophils 13.6 thou/uL (1.40-6.50); %Basophils 0.1 % (0.0-1.0); %Lymphocytes 10.6 % (21.0-51.0); %Neutrophils 81.2 % (42.0-75.0); Hemoglobin 12.3 g/dL (12.0-16.0); Mean Corpuscular HGB CONC 33.2 g/dL (32.0-36.0); Mean Corpuscular Hemoglobin 30.7 pg (27.0-31.0); Mean Corpuscular Volume 92.3 fL (78.0-98.0); Mean Platelet Volume 9.5 fL (7.4-10.4); Platelet Count 231 thou/uL (130-400); RBC Distribution Width 12.4 % (11.5-14.5); White Blood Cell (WBC) Count 16.8 thou/uL (4.8-10.8)
[2020-11-29 04:27] LABS: Anion Gap 11 mmol/L (10-20); BUN (Urea Nitrogen) 17 mg/dL (9.8-20.1); Calc. Creatinine Clearance 111 mL/min (70-130); Calcium 8.6 mg/dL (7.8-10.44); Carbon Dioxide 37 mmol/L (23-31); Chloride 100 mmol/L (98-107); Glucose 92 mg/dL (80-115); Potassium 4.4 mmol/L (3.5-5.1); Sodium 144 mmol/L (136-145)
[2020-11-29] MEDS ORDERED: Fentanyl CADD 100 ML ONE ×2 (04:29→15:22)
[2020-11-29] MEDS: Fentanyl CADD 100 ML IV SCH ×2 (04:41→15:52)
[2020-11-29 07:50] LABS: Actual Bicarbonate (HCO3a) 35.4 mEq/L (22-28); Base Excess (BEa) 11.8 mEq/L (-2.0 to +3.0); CO2 Tension 42.1 mmHg (35.0-45.0); Calcium, Ionized (arterial) 1.15 mmol/L (1.12-1.30); Carboxyhemoglobin (COHb) 0.6 gm% (0.0-3.0); Hemoglobin (Hb) 10.6 g/dL (12.0-16.0); O2 Tension (PaO2), arterial 72.1 mmHg (> 80.0); Potassium - ABG Lab 3.99 mmol/L (3.70-5.30); pH, Arterial 7.54 (7.35-7.45)
[2020-11-29 07:51] LABS: Puncture Site RRA
[2020-11-29 07:52] LABS: ALV-art Gradient 374.375 mmHg (0-20)
[2020-11-29] MEDS ORDERED: Lidocaine 1% (PF) 30 ML VIAL ONE (08:32)
[2020-11-29] MEDS: Zinc Sulfate 220 MG CAP PO SCH (09:34)
[2020-11-29] MEDS: Famotidine 20 MG TAB PO SCH ×2 (09:34→19:28)
[2020-11-29] MEDS: Polyethylene Glycol 3350 17 GM Packet PER TUBE SCH (09:34)
[2020-11-29] MEDS: Senokot S 8.6-50 MG TAB PO SCH ×2 (09:34→19:28)
[2020-11-29] MEDS: Enoxaparin Sodium 40 MG/0.4 ML SYRINGE SC SCH ×2 (09:34→19:27)
[2020-11-29] MEDS: Ascorbic Acid 500 mg Chewable Tablet PO SCH (09:35)
[2020-11-29] MEDS: Dexamethasone 4 mg/ml Vial SLOW IVP SCH (09:35)
[2020-11-29] MEDS: Lantus 1000 UNITS/10 ML VIAL SC SCH ×2 (10:00→19:28)
[2020-11-29] MEDS: Acetaminophen 325 MG TAB PO PRN (23:37)
[2020-11-30] MEDS: Morphine 4 MG/ML VIAL SLOW IVP PRN ×4 (02:22→11:43)
[2020-11-30] MEDS: Vecuronium 10 MG VIAL IVP PRN ×4 (02:24→11:44)
[2020-11-30] MEDS: Lorazepam 2 MG/ML VIAL SLOW IVP PRN ×5 (02:24→16:08)
[2020-11-30 04:56] LABS: BUN (Urea Nitrogen) 18 mg/dL (9.8-20.1); Calc. Creatinine Clearance 102 mL/min (70-130); Calcium 8.5 mg/dL (7.8-10.44); Glucose 94 mg/dL (80-115)
[2020-11-30] MEDS ORDERED: Fentanyl CADD 100 ML ONE ×2 (05:03→17:11)
[2020-11-30 05:07] LABS: Anion Gap 17 mmol/L (10-20); Carbon Dioxide 32 mmol/L (23-31); Chloride 96 mmol/L (98-107); Potassium 4.6 mmol/L (3.5-5.1); Sodium 140 mmol/L (136-145)
[2020-11-30] MEDS: Fentanyl CADD 100 ML IV SCH ×2 (05:07→17:15)
[2020-11-30 05:18] LABS: #Eosinphils 0.2 thou/uL (0.0-0.7); #Lymphocytes 2.1 thou/uL (1.20-3.40); #Monocytes 1.1 thou/uL (0.11-0.59); #Neutrophils 16.1 thou/uL (1.40-6.50); %Lymphocytes 10.7 % (21.0-51.0); %Monocytes 5.8 % (0.0-10.0); %Neutrophils 82.5 % (42.0-75.0); Hemoglobin 12.4 g/dL (12.0-16.0); Mean Corpuscular HGB CONC 30.5 g/dL (32.0-36.0); Mean Corpuscular Hemoglobin 28.3 pg (27.0-31.0); Mean Corpuscular Volume 92.8 fL (78.0-98.0); Mean Platelet Volume 9.5 fL (7.4-10.4); Platelet Count 272 thou/uL (130-400); RBC Distribution Width 12.6 % (11.5-14.5); Red Blood Cell (RBC) Count 4.37 mill/uL (4.20-5.40); White Blood Cell (WBC) Count 19.6 thou/uL (4.8-10.8)
[2020-11-30 07:59] LABS: Actual Bicarbonate (HCO3a) 37.2 mEq/L (22-28); Base Excess (BEa) 10.5 mEq/L (-2.0 to +3.0); CO2 Tension 59.1 mmHg (35.0-45.0); Calcium, Ionized (arterial) 1.18 mmol/L (1.12-1.30); Carboxyhemoglobin (COHb) 1.5 gm% (0.0-3.0); Hemoglobin (Hb) 12.9 g/dL (12.0-16.0); Potassium - ABG Lab 4.06 mmol/L (3.70-5.30); pH, Arterial 7.42 (7.35-7.45)
[2020-11-30 08:02] LABS: O2 Tension (PaO2), arterial 47.1 mmHg (> 80.0)
[2020-11-30 08:03] LABS: Puncture Site RRA
[2020-11-30 08:07] LABS: ALV-art Gradient 378.125 mmHg (0-20)
[2020-11-30] MEDS: Polyethylene Glycol 3350 17 GM Packet PER TUBE SCH (09:09)
[2020-11-30] MEDS: Enoxaparin Sodium 40 MG/0.4 ML SYRINGE SC SCH ×2 (09:09→19:33)
[2020-11-30] MEDS: Propofol 1,000 MG/100 ML VIAL IV PRN ×3 (09:09→19:34)
[2020-11-30] MEDS: Senokot S 8.6-50 MG TAB PO SCH ×2 (09:10→19:33)
[2020-11-30] MEDS: Zinc Sulfate 220 MG CAP PO SCH (09:10)
[2020-11-30] MEDS: Dexamethasone 4 mg/ml Vial SLOW IVP SCH (09:10)
[2020-11-30] MEDS: Ascorbic Acid 500 mg Chewable Tablet PO SCH (09:10)
[2020-11-30] MEDS: Famotidine 20 MG TAB PO SCH ×2 (09:10→19:33)
[2020-11-30] MEDS: Lantus 1000 UNITS/10 ML VIAL SC SCH ×2 (10:17→19:35)
[2020-11-30] MEDS ORDERED: Norepinephrine 8 MG in Dextrose 5% in Water 242 ML IVPB PRN (12:30)
[2020-11-30] MEDS: Acetaminophen 325 MG TAB PO PRN (20:18)
[2020-12-01] MEDS: Vecuronium 10 MG VIAL IVP PRN ×2 (00:15→11:45)
[2020-12-01] MEDS: Lorazepam 2 MG/ML VIAL SLOW IVP PRN ×4 (00:15→20:56)
[2020-12-01 04:15] VITALS: TEMP 100
[2020-12-01 04:18] LABS: #Eosinphils 0.2 thou/uL (0.0-0.7); #Lymphocytes 1.1 thou/uL (1.20-3.40); #Monocytes 0.6 thou/uL (0.11-0.59); #Neutrophils 14.6 thou/uL (1.40-6.50); %Basophils 0.1 % (0.0-1.0); %Eosinophils 1.2 % (0.0-10.0); %Lymphocytes 6.9 % (21.0-51.0); %Monocytes 3.7 % (0.0-10.0); %Neutrophils 88.2 % (42.0-75.0); Hemoglobin 13.2 g/dL (12.0-16.0); Mean Corpuscular HGB CONC 32.9 g/dL (32.0-36.0); Mean Corpuscular Hemoglobin 30.3 pg (27.0-31.0); Mean Corpuscular Volume 92.2 fL (78.0-98.0); Platelet Count 249 thou/uL (130-400); RBC Distribution Width 12.7 % (11.5-14.5); Red Blood Cell (RBC) Count 4.36 mill/uL (4.20-5.40); White Blood Cell (WBC) Count 16.6 thou/uL (4.8-10.8)
[2020-12-01 04:35] LABS: Anion Gap 14 mmol/L (10-20); BUN (Urea Nitrogen) 18 mg/dL (9.8-20.1); Calc. Creatinine Clearance 102 mL/min (70-130); Calcium 8.4 mg/dL (7.8-10.44); Carbon Dioxide 35 mmol/L (23-31); Chloride 97 mmol/L (98-107); Glucose 152 mg/dL (80-115); Potassium 3.8 mmol/L (3.5-5.1); Sodium 142 mmol/L (136-145)
[2020-12-01 05:40] VITALS: BMI 20.4
[2020-12-01] MEDS: Ascorbic Acid 500 mg Chewable Tablet PO SCH (08:38)
[2020-12-01] MEDS: Famotidine 20 MG TAB PO SCH (08:38)
[2020-12-01] MEDS: Dexamethasone 4 mg/ml Vial SLOW IVP SCH (08:39)
[2020-12-01] MEDS: Polyethylene Glycol 3350 17 GM Packet PER TUBE SCH (08:39)
[2020-12-01] MEDS: Propofol 1,000 MG/100 ML VIAL IV PRN ×2 (08:39→11:45)
[2020-12-01] MEDS: Enoxaparin Sodium 40 MG/0.4 ML SYRINGE SC SCH ×2 (08:39→13:25)
[2020-12-01] MEDS: Senokot S 8.6-50 MG TAB PO SCH (08:39)
[2020-12-01] MEDS: Zinc Sulfate 220 MG CAP PO SCH (08:39)
[2020-12-01 08:53] LABS: Base Excess (BEa) 10.1 mEq/L (-2.0 to +3.0); CO2 Tension 47.8 mmHg (35.0-45.0); Calcium, Ionized (arterial) 1.15 mmol/L (1.12-1.30); Carboxyhemoglobin (COHb) 1.3 gm% (0.0-3.0); Hemoglobin (Hb) 14.1 g/dL (12.0-16.0); Potassium - ABG Lab 3.61 mmol/L (3.70-5.30); pH, Arterial 7.48 (7.35-7.45)
[2020-12-01 08:57] LABS: O2 Tension (PaO2), arterial 46.7 mmHg (> 80.0)
[2020-12-01 08:58] LABS: Puncture Site RRA
[2020-12-01] MEDS: Lantus 1000 UNITS/10 ML VIAL SC SCH (10:00)
[2020-12-01] MEDS: HumaLOG 300 UNITS/3 ML VIAL SC PRN (10:02)
[2020-12-01 10:48] LABS: Platelet Count 276 thou/uL (130-400)
[2020-12-01 11:03] LABS: INR-International Normal Ratio 1.1; PTT 39.6 sec (22.9-36.1); Prothrombin Time 14.5 sec (12.0-14.7)
[2020-12-01 11:04] LABS: D-Dimer Test 3.92 *mcg/mL (0.27-0.43)
[2020-12-01 11:08] VITALS: BP 132/80
[2020-12-01 11:43] LABS: Fibrinogen 855 mg/dL (253-463)
[2020-12-01 11:56] LABS: FSP-Qualitative Normal (Normal)
[2020-12-01] MEDS ORDERED: Fentanyl CADD 100 ML ONE (13:18)
[2020-12-01] MEDS: Fentanyl CADD 100 ML IV SCH (13:26)
[2020-12-01] MEDS: Morphine 4 MG/ML VIAL SLOW IVP PRN ×2 (13:26→20:55)
[2020-12-01] MEDS ORDERED: Morphine 10 MG/ML VIAL SLOW IVP PRN (20:44)
[2020-12-01] MEDS ORDERED: Lorazepam 2 MG/ML VIAL SLOW IVP PRN (20:47)
== END 2020-12-01 21:20 | disposition expired | DRG 870 ==
LOC: ERS 18:12 → ERHOLD 20:09 → IMCU/EMU 11-15 16:04 → CCU 11-24 08:41
PROVIDERS: ADMIT Internal Medicine; ATTEND Hospitalist
PROC: 8E0ZXY6 Isolation (ICD-10-PCS; principal; 2020-11-14)
PROC: 3E0333Z Introduction of Anti-inflammatory into Peripheral Vein, Percutaneous Approach (ICD-10-PCS; 2020-11-14)
PROC: 5A09557 Assistance with Respiratory Ventilation, Greater than 96 Consecutive Hours, Continuous Positive Airway Pressure (ICD-10-PCS; 2020-11-15)
PROC: XW0DXM6 Introduction of Baricitinib into Mouth and Pharynx, External Approach, New Technology Group 6 (ICD-10-PCS; 2020-11-15)
PROC: 5A1955Z Respiratory Ventilation, Greater than 96 Consecutive Hours (ICD-10-PCS; 2020-11-24)
PROC: 3E033XZ Introduction of Vasopressor into Peripheral Vein, Percutaneous Approach (ICD-10-PCS; 2020-11-24)
PROC: 0BH17EZ Insertion of Endotracheal Airway into Trachea, Via Natural or Artificial Opening (ICD-10-PCS; 2020-11-24)
PROC: 0D9670Z Drainage of Stomach with Drainage Device, Via Natural or Artificial Opening (ICD-10-PCS; 2020-11-24)
PROC: 0W9B30Z Drainage of Left Pleural Cavity with Drainage Device, Percutaneous Approach (ICD-10-PCS; 2020-11-29)
DX: A41.89 Other specified sepsis (principal); U07.1 COVID-19; E10.10 Type 1 diabetes mellitus with ketoacidosis without coma; J12.82 Pneumonia due to coronavirus disease 2019; J80 Acute respiratory distress syndrome; G93.41 Metabolic encephalopathy; R65.21 Severe sepsis with septic shock; D65 Disseminated intravascular coagulation [defibrination syndrome]; J93.83 Other pneumothorax; Z66 Do not resuscitate; I10 Essential (primary) hypertension; T38.0X5A Adverse effect of glucocorticoids and synthetic analogues, initial encounter; F41.9 Anxiety disorder, unspecified; K59.00 Constipation, unspecified; R57.8 Other shock; Z83.3 Family history of diabetes mellitus; Z82.49 Family history of ischemic heart disease and other diseases of the circulatory system; Z87.891 Personal history of nicotine dependence; Z78.1 Physical restraint status
CPT/HCPCS: 36415; 36416; 36600; 71045; 71275; 80048; 80053; 80076; 81001; 82010; 82550; 82805; 83036; 83605; 83690; 83735; 83880; 83930; 84145; 84484; 85025; 85049; 85300; 85362; 85379; 85384; 85610; 85730; 86140; 86850; 86900; 86901; 87040; 87077; 87086; 87149; 87186; 93005; 94002; 94003; 94660; 96365; 96366; 96368; 96372; 96375; J0456; J0696; J1100; J1650; J1815; J2001; J2060; J2270; J2405; J2704; J3010; J3480; J3490; J7030; J7042; J7050; J7120; Q9967